=== PATIENT | female | born 1995 | race Caucasian/White ===

== ENCOUNTER → 2017-07-01 22:23 | Observation (INO) ==
--- NOTE | 2017-07-01 22:12 | OB/GYN Progress Note ---
Date of Encounter: 07/01/17 Time of Encounter: 22:10 - Assessment and Plan (1) 36 weeks gestation of Current Visit: Yes Status: Acute (2) Marisol rash of groin Current Visit: Yes Status: Acute Rx nystatin cream. (3) NST (non-stress test) reactive Current Visit: Yes Status: Acute Subjective - Subjective Interval history: 21 year-old presenting at 36 weeks gestation with c/o rash on vulva. She reports red sores that itch and burn. She also has increased discharge that is yellow. The discharge has been present for 2 weeks and the rash for 1 week. She was seen a week ago and had a negative vaginosis panel. Antepartum ROS: movement normal, no loss of fluid, no vaginal bleeding, no contractions Objective - Vital Signs Vital Signs: Intake and Output 07/01/17 07/01/17 07/01/17 07:59 15:59 23:59 Other: Weight 102.7 kg Patient Weight 07/01/17 23:59 Weight 102.7 kg - Exam FHR: category 1 FHR comments: NST reactive Abdomen: Present: soft, gravid Uterus: Absent: tenderness Cervical dilation: defer, pt not feeling any contractions, cramping, or tightening. Comments: dry, erythemic rash along vulva in circular pattern.
[2017-07-01 22:55] LABS: Trichomonas DNA Not Detected (Not Detect)
[2017-07-01 22:56] LABS: Candida DNA Not Detected (Not Detect); Gardnerella DNA Not Detected (Not Detect)
[2017-07-02 09:04] LABS: HSV 2 DNA Not Detected (Not Detect)
== END | disposition home or self-care (01) ==
LOC: 1NENULAB
PROVIDERS: ADMIT Obstetrics & Gynecology; ATTEND Obstetrics & Gynecology

== ENCOUNTER 2017-07-17 11:37 | Inpatient (IN) ==
[2017-07-17] MEDS ORDERED: Famotidine 20 MG/2 ML VIAL IVP PRN (11:50)
[2017-07-17] MEDS ORDERED: Naloxone 0.4 MG/ML INJ IVP PRN (11:50)
[2017-07-17] MEDS ORDERED: Ringers Solution, Lactated 1,000 ML IVC SCH (12:00)
[2017-07-17] MEDS ORDERED: miSOPROStol 25 MCG TABLET PO PRN (12:10)
[2017-07-17 12:42] LABS: Basophils % 0.2 %; Eosinophils % 0.3 %; Hematocrit 37.7 % (35.3-44.9); Hemoglobin 12.3 g/dL (11.5-15.4); Immature Granulocytes % 1.1 % (0-4); Lymphocytes # 2.3 K/mcL (0.6-4.6); Lymphocytes % 17.2 %; Mean Corpuscular HGB Conc 32.6 g/dL (31.6-35.5); Mean Corpuscular Hemoglobin 26.3 pg (28.0-33.3); Mean Corpuscular Volume 80.7 fL (83.0-100.0); Mean Platelet Volume 10.5 fL (9.4-12.4); Monocytes # 0.5 K/mcL (0.0-1.3); Monocytes % 3.9 %; Neutrophils # 10.3 K/mcL (1.6-8.9); Platelet Count 253 K/mcL (140-400); Red Blood Count 4.67 M/mcL (3.82-4.97); Segmented Neutrophils % 77.3 %
[2017-07-17 12:55] LABS: Alanine Aminotransferase 12 Units/L (0-55); Aspartate Amino Transferase 13 Units/L (5-34); BUN/Creatinine Ratio 12 (6-26); Blood Urea Nitrogen 8 mg/dL (7-20); Lactate Dehydrogenase 125 Units/L (159-327); Uric Acid 5.8 mg/dL (2.6-6.0); eGFR For African Americans > 60; eGFR For Non-African Americans > 60
--- NOTE | 2017-07-17 13:36 | OB/GYN History & Physical ---
Date of Encounter: 07/17/17 Time of Encounter: 13:31 Assessment and Plan (1) 38 weeks gestation of Current visit: Yes Status: Acute (2) Gestational hypertension affecting first Current visit: Yes Status: Acute Blood pressure remains elevated in labor and delivery, patient discussed with Dr. Marmolejo decision made to proceed with induction for gestational hypertension Admit to labor and delivery Cytotec ordered Nubain/epidural as desired Obtain PIH labs Anticipate History of Present Illness HPI: Ms. Constantino is a 21 year old female 38 weeks and 2 days. Sent from office for evaluation of elevated BP with occasional headache this past week. Blood pressures remain elevated. Decision made to move forward with IOL. Reports good movement, occasional cramping, denies vaginal bleeding or leaking of fluid. dictated by maternal obesity, monosomy X noted on NIPT, however follow -up scan showed normal-appearing fetus on the genetic counseling indicates risk of monosomy fetus is less than 5% Labs: O+, rubella and varicella immune, GBS negative, all other serologies negative Past Med Surg Social Fam HX - Past Medical History Medical history: no medical history Psychiatric history: no psych history - Past Surgical History Surgical History: no surgical history - Social History Smoking Status: Never smoker Smokeless Tobacco Status: No Alcohol use: none Drug use: none - Family History Paternal Grandfather Adopted: No Living Status: Still Living Hx Family Cardiac Disorders: Yes ("hole in his heart", stents and "watchman device") Hx Family Respiratory Disorders: No Hx Family Cancer: No Hx Family GI Disorders: No Hx Family Endocrine Disorder: No Hx Family Neuromuscular Disorders: No Hx Family Neurologic Disorders: No Hx Family HEENT Disorders: No Hx Family Autoimmune Disorders: No Hx Family Medical Disorders: Yes (stroke x3) Obstetrical History - Pregnancies : 1 Para: 0 Term: 0 : 0 Ab's: 0 Livin Medications and Allergies Vit#98/Ferrous Fum/FA [Kpn Tablet] 1 each PO DAILY 06/22/17 [ History] 3 Allergy/AdvReac Type Severity Reaction Status Date / Time No Known Allergies Allergy Verified 07/13/16 12:03 Exam - Constitutional Constitutional: well developed, well nourished, no acute distress - Neck Neck exam: full ROM - Lungs Respiratory exam: CTAB - Cardiovascular Cardiovascular exam: RRR - Abdomen Abdomen: Present: bowel sounds normal, gravid, non tender - Extremities Extremities exam: normal capillary refill, normal inspection - Vagina Vagina: Present: normal moisture - Cervix Dilation: 3 (Per in office ) Results Result Diagrams: 07/17/17 11:58 07/17/17 11:58 Abnormal lab results WBC 13.3 K/mcL (4.3-11.1) H 07/17/17 11:58 MCV 80.7 fL (83.0-100.0) L 07/17/17 11:58 MCH 26.3 pg (28.0-33.3) L 07/17/17 11:58 RDW 15.0 % (11.5-14.5) H 07/17/17 11:58 Neutrophils # 10.3 K/mcL (1.6-8.9) H 07/17/17 11:58 Lactate Dehydrogenase 125 Units/L (159-327) L 07/17/17 11:58 All other labs normal. - VTE Reasons for not Prescribing Prophylaxis: Treatment not Indicated - Low risk for VTE
[2017-07-17 15:12] LABS: Amphetamine Screen,Urine Negative ng/mL (Cutoff=1000); Barbiturate Screen,Urine Negative ng/mL (Cutoff=200); Benzodiazepines Screen,Urine Negative ng/mL (Cutoff=200); Cannabinoid Screen,Urine Negative ng/mL (Cutoff = 50); Cocaine Screen,Urine Negative ng/mL (Cutoff= 300); Creatinine,Urine 21 mg/dL; Opiate Screen,Urine Negative ng/mL (Cutoff=300); Phencyclidine Screen,Urine Negative ng/mL (Cutoff=25)
[2017-07-17 15:18] LABS: Protein/Creatinine Ratio,Urine < 0.33 mg/mg (0-0.20)
--- NOTE | 2017-07-17 16:29 | OB Labor Progress Note ---
Date of Encounter: 07/17/17 Time of Encounter: 16:27 Labor Progress Note - Cervix Cervix: 3-[address] Marmolejo - Heart Tones Heart Tones: 135/moderate/+accel/-decel - [place]: q1-3 - Interventions Interventions: AROM by - Plan Plan: Continue current management Will add pitocin if no further cervical change
[2017-07-17] MEDS ORDERED: *HR* Nalbuphine 20 MG/ML AMPUL IVP PRN (17:09)
[2017-07-17] MEDS ORDERED: Oxytocin 20 units/ LR 1000 mL 20 UNIT/1,000 ML BAG IVC SCH (17:45)
[2017-07-17] MEDS ORDERED: *HR* FentaNYL (PF) 100 MCG/2 ML VIAL ONE ×2 (21:15→23:34)
[2017-07-17] MEDS ORDERED: Bupivacaine-MPF 0.25% 10 ML VIAL ONE (21:15)
[2017-07-17] MEDS ORDERED: Epidural Premix (fent/bupiv) 110 ML EP ONE (21:16)
--- NOTE | 2017-07-17 21:53 | Anesthesia Evaluation PreOp ---
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 Other Medical History: Denies Any Significant HX Anesthesia History: Past Anesthesia (Never had NA or GA; denies family h/o GA complications) : Yes Test: Positive Alcohol Use: none Drug use: none Medications and Allergies Vit#98/Ferrous Fum/FA [Kpn Tablet] 1 each PO DAILY 06/22/17 [ History] 3 Allergy/AdvReac Type Severity Reaction Status Date / Time No Known Allergies Allergy Verified 07/13/16 12:03 - Meds/Allergy Pre-op Review Allergies Reviewed: Yes Beta Blockers on Current Med List: Yes Anesthesia Results - Labs 07/17/17 11:58 07/17/17 11:58 Anesthesia Exam 134/89, hr 99, rr 18 O2 Sat Height 1.63 m Weight 104.326 kg NPO (# of Hours): solids > 8hrs Pain Scale: 10 Pain Scale Used: Numeric (1 - 10) - HEENT Pupil (Motor): Pupils equal Mallampati: I Teeth: Normal Oral Opening: Greater than 3 - AIR CONDITIONING SHEET METAL INSTALLER LOC: Oriented AIR CONDITIONING SHEET METAL INSTALLER Motor: Normal RUE, Normal LUE, Normal RLE, Normal LLE, Normal Face AIR CONDITIONING SHEET METAL INSTALLER Sensory: Normal: RUE, LUE, RLE, LLE, Face - Cardiac Rhythm: Regular Murmur: None - Pulmonary Breath Sounds: bilateral Clear Respiratory Effort: Symmetrical Anesthesia Assess/Plan ASA Score: 2 Modified [place] Scale for Level of Consciousness: Cooperative, oriented, and tranquil Anesthetic Plan: Regional Autologous Blood: No Monitoring Plan: Standard Monitors Recovery Plan: Other
[2017-07-17] MEDS ORDERED: Bupivacaine-MPF 0.25% 10 ML VIAL EP ONE (21:55)
[2017-07-17] MEDS ORDERED: *HR* FentaNYL (PF) 100 MCG/2 ML VIAL EP ONE (21:55)
--- NOTE | 2017-07-17 21:55 | Anesthesia Procedures ---
Date of Encounter: 07/17/17 Time of Encounter: 21:54 Procedures: Anesthesia - Epidural/Spinal Patient ID/Chart reviewed: Yes Patient examined: Yes OB Eval: : 1 OB Eval: Hx Para: 0 OB Eval: Dilated at (cm): 5 OB Eval: Contractions: Non-stressed pattern Consent Obtained: Yes Supplemental Oxygen: None/Room Air Site Prep: Aseptic Technique, Sterile prep and drape, Povidone-Iodine 1% Patient position: upright Local Anesthetic: Lidocaine 1% Amount of Local Anesthetic used: 3 Touhy Needle Gauge: 18 Touhy Needle Depth (cm): 7 Catheter Depth at Skin (cm): 13 Test Dose (1.5% Lido + Epi): Volume given (mls): 5 Test Dose Result: Negative Loading Dose: 0.25% Marcaine (mls): 5 Loading Dose: Fentanyl (mcg): 100 Loading Dose Administered: Thru Catheter Infusion Med: 0.125% Bupivacaine w/ 2 mcg/ml Fentanyl Infusion Rate (mls/hr): 14 (w/ demand bolus of 5mL q30min PRN) Catheter Secured in Place: Tegaderm, Tape Interspace Used: L4-L5 Loss of Resistance (LORY): Yes Blood: No CSF: No Paresthesia: No Vitals + FHT's: please see Rachel HAMILTON's electronic documentation
[2017-07-17] MEDS ORDERED: Epidural Premix (fent/bupiv) 110 ML EP SCH (22:00)
[2017-07-17] MEDS ORDERED: Metoclopramide 10 MG/2 ML VIAL IVP PRN (23:31)
[2017-07-17] MEDS ORDERED: Lidocaine -MPF 2% 5 ML VIAL ONE (23:34)
[2017-07-17] MEDS ORDERED: *HR* Oxytocin 10 UNIT/ML VIAL IM ONE (23:36)
[2017-07-18] MEDS ORDERED: MetroNIDAZOLE 500 MG/100 ML 500 MG/100 ML BAG IVPB ONE (00:14)
[2017-07-18] MEDS ORDERED: *HR* Morphine Sulfate/PF 5 MG/10 ML AMPUL ONE (00:29)
[2017-07-18] MEDS ORDERED: Ringers Solution, Lactated 1,000 ML ONE (00:33)
[2017-07-18] MEDS ORDERED: *HR* FentaNYL (PF) 100 MCG/2 ML VIAL ONE (00:46)
[2017-07-18] MEDS ORDERED: Ketamine *HR* 500 MG/10 ML MDV ONE (00:53)
[2017-07-18] MEDS ORDERED: Ondansetron 4 MG/2 ML VIAL IVP PRN ×2 (01:00→03:30)
[2017-07-18] MEDS ORDERED: Naloxone 0.4 MG/ML INJ IVP PRN ×2 (01:00→03:30)
[2017-07-18] MEDS ORDERED: *HR* HYDROmorphone (PF) 1 MG/ML SYRINGE IVP PRN ×2 (01:00→03:30)
--- NOTE | 2017-07-18 01:55 | Anesthesia Evaluation Post Op ---
Date of Encounter: 07/18/17 Time of Encounter: 01:54 - Vital Signs Vital Signs: 134/82, HR 85, RR 18, 98% - Lungs Lungs: Clear Ascult./Percussion - Airway Airway: Non-obstructed - Cardiovascular Regular Rate - Mental Status Mental Status: Alert & Oriented, Answers Appropriately - Pain Pain Scale: 0 Pain Scale used: Numeric (1 - 10) - Nausea Vomiting Nausea Vomiting: Not Present - Hydration Hydration: NPO, Gusman catheter - Discharge PostOp Status: Transfer Patient to floor
[2017-07-18] MEDS ORDERED: Rho Immune Globulin 1,500 UNIT SYRINGE IM ONE (03:30)
[2017-07-18] MEDS ORDERED: Sennosides 8.6 MG TABLET PO PRN (03:30)
[2017-07-18] MEDS ORDERED: Oxytocin 20 units/ LR 1000 mL 20 UNIT/1,000 ML BAG IVC SCH (03:30)
[2017-07-18] MEDS ORDERED: Simethicone 80 MG TAB.CHEW PO PRN (03:30)
[2017-07-18] MEDS ORDERED: Metoclopramide 10 MG/2 ML VIAL IVP PRN (03:30)
--- NOTE | 2017-07-18 04:09 | OB/GYN Procedure Note ---
Section - Date of procedure: 07/18/17 Preop diagnosis: arrest of dilation, category 2 FHT tracing Post-op diagnosis: same (Occult cord, cord around neck x1) Procedure: section, primary low transverse Surgeon: Raysa Marmolejo Estimated blood loss (cc): 500 Anesthesiologist: Anel Cole Supervisor Front: Calvin Khan Anesthesia Type: Epidural section complications: none Disposition: L&D Recovery Room Specimens: Placenta, Cord segment, Cord blood - Infant (s) A Infant Delivery Date: 07/18/17 Delivery Time: 00:36 Presentation: vertex Position: NESTOR Route of delivery: other ( section) Gender: Female Viability: Viable Pounds: 7 Ounces: 4 Gram Weight: 3.3 kg at 1 minute: 9 at 5 minutes: 9 Shoulder Dystocia: not encountered Specimens collected: cord blood Placenta: spontaneous, uterine exploration Cord: nuchal cord, 3 umbilical vessels, other (Occult cord) - Narrative Narrative: The patient was brought to the operating room, sign in completed. Epidural anesthesia was dosed to be adequate for surgery. The patient was then prepped and draped in the usual sterile fashion. A timeout was completed. A Pfannenstiel skin incision was then made and sharply dissected down to the fascia. The fascia was then incised in the midline and extended bluntly and sharply bilaterally. 2 straight [place] clamps were placed on the inferior fascial edge and the fascia was bluntly and sharply dissected away from rectus muscles, this was repeated superiorly.The rectus muscles were bluntly and sharply bissected. Peritoneum was bluntly entered and extended superiorly and inferiorly. A bladder blade was placed to protect the bladder. The Vesicouterine peritoneum was incised with Metzenbaum scissors and extended laterally then the bladder flap was reflected inferiorly and the bladder blade was replaced to protect the bladder. A low transverse incision was then made in the lower uterine segment down to the amnion. This was then bluntly extended laterally then upward in a U fashion with bandage scissors bilaterally. The amnion was then bluntly entered with Allis clamp, clear fluid was seen, and the was delivered in vertex presentation. There was an occult cord along with a nuchal x1 which was reduced. The was vigorous and suctioned on the operating field. After delayed cord clamping, the was handed to the nursery care team. Cord blood was obtained and a cord segment was obtained. IV Pitocin was started. The placenta was delivered spontaneous and intact. The uterine Cavity was digitally inspected and noted to be clear and then was wiped clean with a moist lap sponge. Tubes and ovaries were inspected and found to be grossly normal. Ring clamps were placed on the edge of the uterine incision and the uterine incision was closed using 0 Vicryl suture in a running locking fashion. A second imbricating layer completed the uterine closure. Good hemostasis was achieved. The pelvic cavity was copiously irrigated with sterile water and good hemostasis was again noted. Peritoneal edges and rectus muscles were inspected and good hemostasis was achieved. The fascia was then closed using an 0 PDS loop in a running nonlocking fashion. Subcutaneous tissue was irrigated with sterile water good hemostasis was achieved. Subcutaneous layer was closed with 3-0 Monocryl in a running nonlocking fashion. The skin was then closed with 4-0 Monocryl in a subcuticular fashion. Benzoin and Steri-Strips were used to reinforce the skin incision. Gusman was noted to be draining clear yellow urine at the end of the procedure. All sponge and instrument counts were correct at the end of the procedure. The patient was taken to the recovery room in stable condition.
[2017-07-18] MEDS: *HR* OxyCODONE/APAP 5/325 TABLET PO PRN ×5 (04:32→22:56)
[2017-07-18] MEDS: Ibuprofen 600 MG TABLET PO SCH ×3 (05:40→18:42)
[2017-07-18 08:18] LABS: Basophils % 0.1 %; Eosinophils % 0.1 %; Hematocrit 30.3 % (35.3-44.9); Immature Granulocytes % 0.5 % (0-4); Lymphocytes # 2.2 K/mcL (0.6-4.6); Lymphocytes % 14.8 %; Mean Corpuscular Hemoglobin 27.2 pg (28.0-33.3); Mean Corpuscular Volume 82.6 fL (83.0-100.0); Mean Platelet Volume 10.5 fL (9.4-12.4); Monocytes # 0.9 K/mcL (0.0-1.3); Monocytes % 6.4 %; Neutrophils # 11.5 K/mcL (1.6-8.9); Platelet Count 189 K/mcL (140-400); Red Blood Count 3.67 M/mcL (3.82-4.97); Red Cell Distribution Width 15.2 % (11.5-14.5); Segmented Neutrophils % 78.1 %
[2017-07-18] MEDS ORDERED: Fluconazole 100 MG TABLET PO ONE (21:19)
[2017-07-19] MEDS: Ibuprofen 600 MG TABLET PO SCH ×4 (02:08→21:23)
[2017-07-19] MEDS: *HR* OxyCODONE/APAP 5/325 TABLET PO PRN ×5 (03:04→21:06)
[2017-07-19 07:29] LABS: Eosinophils % 0.7 %; Hematocrit 30.6 % (35.3-44.9); Hemoglobin 9.7 g/dL (11.5-15.4); Immature Granulocytes % 0.8 % (0-4); Lymphocytes % 18.4 %; Mean Corpuscular HGB Conc 31.7 g/dL (31.6-35.5); Mean Corpuscular Hemoglobin 26.5 pg (28.0-33.3); Mean Corpuscular Volume 83.6 fL (83.0-100.0); Monocytes % 6.2 %; Platelet Count 168 K/mcL (140-400); Red Blood Count 3.66 M/mcL (3.82-4.97); Red Cell Distribution Width 15.4 % (11.5-14.5); Segmented Neutrophils % 73.8 %
[2017-07-19 07:30] LABS: Basophils % 0.1 %; Eosinophils # 0.1 K/mcL (0.0-0.6); Lymphocytes # 1.8 K/mcL (0.6-4.6); Monocytes # 0.6 K/mcL (0.0-1.3); Neutrophils # 7.1 K/mcL (1.6-8.9)
[2017-07-19 07:41] LABS: Alanine Aminotransferase 11 Units/L (0-55); Aspartate Amino Transferase 15 Units/L (5-34); BUN/Creatinine Ratio 10 (6-26); Blood Urea Nitrogen 6 mg/dL (7-20); Lactate Dehydrogenase 165 Units/L (159-327); Uric Acid 6.2 mg/dL (2.6-6.0); eGFR For African Americans > 60; eGFR For Non-African Americans > 60
[2017-07-19] MEDS: Prenatal Vit/FA 1 EACH TABLET PO SCH (08:18)
--- NOTE | 2017-07-19 08:32 | OB/GYN Progress Note ---
Date of Encounter: 07/19/17 Time of Encounter: 08:30 - Assessment and Plan (1) delivery, delivered, current hospitalization Current Visit: Yes Status: Acute Doing well, meeting milestones (2) Anemia, Current Visit: Yes Status: Acute Iron supplementation, blood count stable Subjective - Subjective Principal diagnosis: PPD1/POD1 Interval history: The patient was tolerating a regular diet, ambulating, voiding and has return of bowel function. She is working on feeding and is having some issues with breast-feeding. She wants to have an IUD for control. She would like to be put on control pills until this is possible. She declines Depo-Provera Patient reports: appetite normal, voiding normally, pain well controlled, ambulating normally Clemons: doing well, bottle feeding Objective - Vital Signs Latest vital signs: Vital Signs Temp Pulse Resp BP Pulse Ox 07/18/17 21:43 103 07/18/17 19:54 98.6 F 16 129/83 97 07/18/17 15:45 97.9 F 108 16 114/79 98 07/18/17 12:33 99.0 F 103 16 123/79 97 Intake and Output 07/18/17 07/19/17 07/19/17 23:59 07:59 15:59 Intake Total 300 / 300 800 / 800 Output Total 2150 / 2150 500 / 500 Balance -1850 / -1850 300 / 300 Intake: Oral 300 / 300 800 / 800 Output: Urine 2150 / 2150 Catheter 500 / 500 Other: Weight 99.6 kg Patient Weight 07/19/17 23:59 Weight 99.6 kg - Exam Lungs: bilateral: normal Extremities: Present: normal. Absent: tenderness, edema Abdomen: Present: normal appearance, soft, other (+BS). Absent: distention, tenderness Incision: Present: dry, dressed - Labs Labs: Laboratory Results - last 24 hr 07/18/17 07/19/17 07/19/17 07:45 07:08 07:08 WBC 14.7 H 9.7 RBC 3.67 L 3.66 L Hgb 10.0 L D 9.7 L Hct 30.3 L 30.6 L MCV 82.6 L 83.6 MCH 27.2 L 26.5 L MCHC 33.0 31.7 RDW 15.2 H 15.4 H Plt Count 189 168 MPV 10.5 10.0 Immature Gran % 0.5 0.8 Seg Neutrophils % 78.1 73.8 Lymphocytes % 14.8 18.4 Monocytes % 6.4 6.2 Eosinophils % 0.1 0.7 Basophils % 0.1 0.1 Neutrophils # 11.5 H 7.1 Lymphocytes # 2.2 1.8 Monocytes # 0.9 0.6 Eosinophils # 0.0 0.1 Basophils # 0.0 0.0 BUN 6 L Creatinine 0.62 Est GFR ( Amer) > 60 Est GFR (Non-Af Amer) > 60 BUN/Creatinine Ratio 10 Uric Acid 6.2 H AST 15 ALT 11 Lactate Dehydrogenase 165 - Allied health notes Allied health notes reviewed: nursing
[2017-07-20] MEDS: *HR* OxyCODONE/APAP 5/325 TABLET PO PRN ×4 (01:05→12:06)
[2017-07-20] MEDS: Ibuprofen 600 MG TABLET PO SCH (04:39)
[2017-07-20 08:02] VITALS: BP 111/73
--- NOTE | 2017-07-20 08:14 | Discharge Summary ---
Date of Encounter: 07/20/17 Time of Encounter: 08:10 - Discharge Diagnosis (1) Anemia, Priority: Secondary Status: Acute Comments: VSS. Asymptomatic Will d/c home with ferrous sulfate daily. (2) delivery, delivered, current hospitalization Priority: Primary Status: Acute Comments: Status post day 2. VSS, asymptomatic, denies headache, vision changes, and epigastric pain. Bottle feeding without difficulty. Incision well approximated with steri strips in place. No drainage or erythema. Pain well controlled with prescribed medication. Tolerating regular diet. Voiding and passing flatus without difficulty. Follow up appointment in 2 weeks for incision check. D/C home today. Start Micronor for OCP. Take at the same time everyday. Will discuss contraception management again at 6 week visit. - Discharge Medications Prescriptions: Ibuprofen [Motrin] 600 mg PO Q6HR #30 tab OxyCODONE/APAP 5/325 [Percocet 5/325 MG] 1 each PO Q6HR PRN #28 tab PRN Reason: Moderate pain 4-6 Docusate [Colace] 100 mg PO BID PRN #20 PRN Reason: Constipation Ferrous Sulfate 325 mg PO DAILY #30 tab Home Medications: Vit#98/Ferrous Fum/FA [Kpn Tablet] 1 each PO DAILY 06/22/17 [ History] Docusate [Colace] 100 mg PO BID PRN #20 07/20/17 [Rx] Ferrous Sulfate 325 mg PO DAILY #30 tab 07/20/17 [Rx] Ibuprofen [Motrin] 600 mg PO Q6HR #30 tab 07/20/17 [Rx] OxyCODONE/APAP 5/325 [Percocet 5/325 MG] 1 each PO Q6HR PRN #28 tab 07/20/17 [Rx ] Simethicone [Gas-X] 80 mg PO TID PRN 07/20/17 [Rx] Allergies/Adverse Reactions: 3 Allergy/AdvReac Type Severity Reaction Status Date / Time No Known Allergies Allergy Verified 07/13/16 12:03 Data Procedures and tests throughout hospitalization: Laboratory Tests 07/17/17 07/17/17 07/17/17 11:58 11:58 14:52 WBC 13.3 H RBC 4.67 Hgb 12.3 Hct 37.7 MCV 80.7 L MCH 26.3 L MCHC 32.6 RDW 15.0 H Plt Count 253 MPV 10.5 Immature Gran % 1.1 Seg Neutrophils % 77.3 Lymphocytes % 17.2 Monocytes % 3.9 Eosinophils % 0.3 Basophils % 0.2 Neutrophils # 10.3 H Lymphocytes # 2.3 Monocytes # 0.5 Eosinophils # 0.0 Basophils # 0.0 Immature Plt Fraction 4.0 BUN 8 Creatinine 0.66 Est GFR ( Amer) > 60 Est GFR (Non-Af Amer) > 60 BUN/Creatinine Ratio 12 Uric Acid 5.8 AST 13 ALT 12 Lactate Dehydrogenase 125 L Urine Creatinine 21 Protein/Creatinin Ratio < 0.33 H Urine Total Protein < 7 Urine Opiates Screen Negative Ur Barbiturates Screen Negative Ur Phencyclidine Scrn Negative Ur Amphetamines Screen Negative U Benzodiazepines Scrn Negative Urine Cocaine Screen Negative U Marijuana (THC) Screen Negative 07/18/17 07/19/17 07/19/17 07:45 07:08 07:08 WBC 14.7 H 9.7 RBC 3.67 L 3.66 L Hgb 10.0 L D 9.7 L Hct 30.3 L 30.6 L MCV 82.6 L 83.6 MCH 27.2 L 26.5 L MCHC 33.0 31.7 RDW 15.2 H 15.4 H Plt Count 189 168 MPV 10.5 10.0 Immature Gran % 0.5 0.8 Seg Neutrophils % 78.1 73.8 Lymphocytes % 14.8 18.4 Monocytes % 6.4 6.2 Eosinophils % 0.1 0.7 Basophils % 0.1 0.1 Neutrophils # 11.5 H 7.1 Lymphocytes # 2.2 1.8 Monocytes # 0.9 0.6 Eosinophils # 0.0 0.1 Basophils # 0.0 0.0 Immature Plt Fraction BUN 6 L Creatinine 0.62 Est GFR ( Amer) > 60 Est GFR (Non-Af Amer) > 60 BUN/Creatinine Ratio 10 Uric Acid 6.2 H AST 15 ALT 11 Lactate Dehydrogenase 165 Urine Creatinine Protein/Creatinin Ratio Urine Total Protein Urine Opiates Screen Ur Barbiturates Screen Ur Phencyclidine Scrn Ur Amphetamines Screen U Benzodiazepines Scrn Urine Cocaine Screen U Marijuana (THC) Screen Date of admission: 07/17/17 11:37 Primary care physician: PCP NONE Discharging clinician: Susan Stanford Anticipated date of discharge: 07/20/17 - Patient Status Disposition: Home, Self-Care Condition: Good Functional capacity at discharge: independent ambulation Overall status at discharge: patient is progressing back to baseline - Discharge Instructions Instructions: Anemia (GEN) Follow Up With: NONE,PCP [Primary Care Provider] - Raysa Marmolejo MD [Partnered Physician] - (Follow up at 2 weeks and 6 weeks ) - Diet and Activity Activity: increase activity as tolerated Diet: regular diet Hospital Course Reason for admission: induction of labor, IUP at term Delivery: section Episiotomy: none Laceration: none Other procedures: none complications: none Discharge diagnosis: IUP at term delivered baby: female Time Attestation: Total time spent providing and/or coordinating discharge services: Time Spent: Less than 30 minutes - VTE Reasons for not Prescribing Prophylaxis: Treatment not Indicated - Low risk for VTE Documentation of Mechanical Device: Intermittent pneumatic compression device Exam - Constitutional Vitals: Temp Pulse Resp BP Pulse Ox 98.0 F 80 16 111/73 100 07/20/17 07:30 07/20/17 07:30 07/20/17 07:30 07/20/17 07:30 07/19/17 20:25 General appearance IM: A&O X 3 - Respiratory Respiratory exam: Present: CTAB - Cardiovascular Cardiovascular exam IM: Present: +S1, +S2 - GI/Abdominal GI/Abdominal exam IM: normal bowel sounds Incision: normal, dry, intact - Rectal Rectal exam: deferred - Uterine Tone: Firm Uterus Position: 2 Fingers Below Umbilicus, Midline - Extremities Exam Extremities exam IM: Present: normal capillary refill, warm - Neurological Exam Neurological exam: oriented X3
[2017-07-20] MEDS: Prenatal Vit/FA 1 EACH TABLET PO SCH (08:48)
== END 2017-07-20 12:47 | disposition home or self-care (01) | DRG 766 ==
LOC: 1NENULAB 11:37 → 1NENUOBS 07-18 03:29
PROVIDERS: ADMIT Obstetrics & Gynecology; ATTEND Obstetrics & Gynecology

== ENCOUNTER 2020-06-28 05:48 | Inpatient (IN) ==
[2020-06-28] MEDS ORDERED: Naloxone 0.4 MG/ML INJ IVP PRN (05:58)
[2020-06-28] MEDS ORDERED: Metoclopramide 10 MG/2 ML VIAL IVP PRN ×2 (05:58→12:24)
[2020-06-28] MEDS ORDERED: Famotidine 20 MG/2 ML VIAL IVP PRN (05:58)
[2020-06-28] MEDS ORDERED: Azithromycin 500 MG in 0.9 % Sodium Chloride 250 ML IVPB ONE (05:58)
[2020-06-28] MEDS ORDERED: ceFAZolin 2,000 MG in Water for inj. (sterile) 20 ML IVP ONE (05:59)
[2020-06-28] MEDS ORDERED: Ringers Solution, Lactated 1,000 ML IVC SCH (06:00)
[2020-06-28 06:36] LABS: Basophils % 0.4 %; Eosinophils # 0.1 K/mcL (0.0-0.6); Eosinophils % 0.8 %; Hematocrit 32.8 % (35.3-44.9); Hemoglobin 10.8 g/dL (11.5-15.4); Immature Granulocytes % 0.9 % (0-4); Lymphocytes # 2.7 K/mcL (0.6-4.6); Lymphocytes % 24.6 %; Mean Corpuscular HGB Conc 32.9 g/dL (31.6-35.5); Mean Corpuscular Hemoglobin 26.7 pg (28.0-33.3); Mean Platelet Volume 10.1 fL (9.4-12.4); Monocytes # 0.8 K/mcL (0.0-1.3); Monocytes % 7.5 %; Neutrophils # 7.2 K/mcL (1.6-8.9); Platelet Count 231 K/mcL (140-400); Red Blood Count 4.05 M/mcL (3.82-4.97); Red Cell Distribution Width 16.9 % (11.5-14.5); Segmented Neutrophils % 65.8 %; White Blood Count 10.9 K/mcL (4.3-11.1)
[2020-06-28 06:53] LABS: Glucose 92 mg/dL (70-105)
[2020-06-28] MEDS ORDERED: EPHEDrine 50 MG/ML VIAL ONE (07:43)
[2020-06-28] MEDS ORDERED: Ringers Solution, Lactated 1,000 ML ONE (07:44)
[2020-06-28] MEDS ORDERED: Ketorolac 30 MG/ML VIAL ONE (07:45)
[2020-06-28] MEDS ORDERED: Ondansetron 4 MG/2 ML VIAL ONE (07:45)
[2020-06-28] MEDS ORDERED: Dexamethasone 4 MG/ML VIAL ONE (07:45)
[2020-06-28] MEDS ORDERED: *HR* Morphine Sulfate/PF 10 MG/10 ML AMPUL ONE (07:46)
[2020-06-28] MEDS ORDERED: *HR* FentaNYL (PF) 100 MCG/2 ML VIAL ONE (07:46)
[2020-06-28 08:38] LABS: Alanine Aminotransferase 10 Units/L (7-52); Aspartate Amino Transferase 13 Units/L (13-39); BUN/Creatinine Ratio 19 (6-26); Blood Urea Nitrogen 10 mg/dL (6-20); Lactate Dehydrogenase 123 Units/L (140-271); Uric Acid 6.4 mg/dL (2.3-7.6); eGFR For African Americans > 60 (> 60); eGFR For Non-African Americans > 60 (> 60)
[2020-06-28] MEDS ORDERED: Acetaminophen IV 1,000 MG/100 ML INFUS..BTL ONE (08:41)
[2020-06-28 08:54] LABS: Protein/Creatinine Ratio,Urine 0.28 mg/mg (0.00-0.20)
[2020-06-28 09:04] LABS: Amphetamine Screen,Urine Negative ng/mL (Cutoff=1000); Barbiturate Screen,Urine Negative ng/mL (Cutoff=200); Benzodiazepines Screen,Urine Negative ng/mL (Cutoff=200); Cannabinoid Screen,Urine Negative ng/mL (Cutoff = 50); Cocaine Screen,Urine Negative ng/mL (Cutoff= 300); Opiate Screen,Urine Negative ng/mL (Cutoff=300); Phencyclidine Screen,Urine Negative ng/mL (Cutoff=25)
[2020-06-28] MEDS ORDERED: Oxytocin 20 units/ LR 1000 mL 20 UNIT/1,000 ML BAG IVC ONE (09:57)
[2020-06-28] MEDS ORDERED: *HR* Promethazine 25 MG/ML VIAL IVP STA (10:20)
[2020-06-28] MEDS ORDERED: Ondansetron 4 MG/2 ML VIAL IVP PRN (12:24)
[2020-06-28] MEDS ORDERED: Sennosides 8.6 MG TABLET PO PRN (12:24)
[2020-06-28] MEDS ORDERED: Oxytocin 20 units/ LR 1000 mL 20 UNIT/1,000 ML BAG IVC SCH (12:24)
[2020-06-28] MEDS ORDERED: Simethicone 80 MG TAB.CHEW PO PRN (12:24)
[2020-06-28] MEDS ORDERED: Rho Immune Globulin 1,500 UNIT SYRINGE IM ONE (12:24)
[2020-06-28] MEDS: *HR* Metformin 500 MG TABLET PO SCH (16:30)
[2020-06-28] MEDS: Acetaminophen 325 MG TABLET PO SCH (17:31)
[2020-06-28] MEDS: Ibuprofen 600 MG TABLET PO SCH (17:32)
[2020-06-29] MEDS: Ibuprofen 600 MG TABLET PO SCH ×4 (02:27→18:21)
[2020-06-29] MEDS: *HR* OxyCODONE Immed Rel 5 MG TABLET PO PRN ×5 (04:34→21:17)
[2020-06-29] MEDS: Prenatal Vit/FA 1 EACH TABLET PO SCH (07:50)
[2020-06-29] MEDS: *HR* Metformin 500 MG TABLET PO SCH ×2 (07:50→16:47)
[2020-06-29] MEDS: Acetaminophen 325 MG TABLET PO SCH ×3 (07:51→18:21)
[2020-06-29 08:12] LABS: Basophils % 0.3 %; Eosinophils # 0.1 K/mcL (0.0-0.6); Eosinophils % 0.6 %; Hematocrit 27.4 % (35.3-44.9); Immature Granulocytes % 0.8 % (0-4); Lymphocytes # 1.9 K/mcL (0.6-4.6); Lymphocytes % 18.9 %; Mean Corpuscular Hemoglobin 25.4 pg (28.0-33.3); Mean Platelet Volume 10.1 fL (9.4-12.4); Monocytes # 0.7 K/mcL (0.0-1.3); Monocytes % 6.8 %; Neutrophils # 7.4 K/mcL (1.6-8.9); Platelet Count 170 K/mcL (140-400); Red Blood Count 3.34 M/mcL (3.82-4.97); Red Cell Distribution Width 17.2 % (11.5-14.5); Segmented Neutrophils % 72.6 %; White Blood Count 10.2 K/mcL (4.3-11.1)
[2020-06-29 08:16] LABS: Hemoglobin 8.5 g/dL (11.5-15.4)
[2020-06-30] MEDS: Ibuprofen 600 MG TABLET PO SCH ×3 (00:16→11:54)
[2020-06-30] MEDS: Acetaminophen 325 MG TABLET PO SCH ×3 (00:17→11:54)
[2020-06-30] MEDS: *HR* OxyCODONE Immed Rel 5 MG TABLET PO PRN ×3 (01:52→09:15)
[2020-06-30 07:57] VITALS: BP 124/84
[2020-06-30] MEDS: Prenatal Vit/FA 1 EACH TABLET PO SCH (09:14)
[2020-06-30] MEDS: *HR* Metformin 500 MG TABLET PO SCH (09:15)
== END 2020-06-30 13:24 | disposition home or self-care (01) | DRG 788 ==
LOC: 1NENULAB 05:48 → 1NENUOBS 12:24
PROVIDERS: ADMIT Obstetrics & Gynecology; ATTEND Obstetrics & Gynecology

== ENCOUNTER → 2021-08-21 13:25 | Observation (INO) ==
[2021-08-21 13:03] LABS: Hematocrit 33.7 % (35.3-44.9); Hemoglobin 10.9 g/dL (11.5-15.4); Mean Corpuscular HGB Conc 32.3 g/dL (31.6-35.5); Mean Corpuscular Hemoglobin 26.8 pg (28.0-33.3); Mean Platelet Volume 9.4 fL (9.4-12.4); Platelet Count 232 K/mcL (140-400); Red Blood Count 4.06 M/mcL (3.82-4.97); White Blood Count 11.3 K/mcL (4.3-11.1)
== END | disposition home or self-care (01) ==
LOC: 1NENULAB
PROVIDERS: ADMIT Obstetrics & Gynecology; ATTEND Obstetrics & Gynecology

== ENCOUNTER → 2021-11-06 01:37 | Observation (INO) | END | disposition home or self-care (01) | LOC: 1NENULAB | PROVIDERS: ADMIT Registered Nurse; ATTEND Registered Nurse ==

== ENCOUNTER → 2021-11-17 19:02 | Observation (INO) ==
[2021-11-17 19:30] LABS: Amorphous Sediment,Urine Few per hpf (None-Few); Bacteria,Urine Few per hpf (None-Few); Bilirubin,Urine Negative (Negative); Blood,Urine Large (Negative); Clarity,Urine Ex.Turbid (Clear); Color,Urine Yellow (Yellow); Glucose,Urine (UA) Normal (Normal); Ketones,Urine Negative (Negative); Leukocyte Esterase,Urine Moderate (Negative); Nitrite,Urine Negative (Negative); Protein,Urine 30 mg/dL (Neg-Trace); RBC,Urine TNTC per hpf (0-3); Squamous Epithelial Cell,Urine Moderate per hpf (None-Few); Urobilinogen,Urine Normal (Normal); WBC,Urine TNTC per hpf (0-3)
== END | disposition home or self-care (01) ==
LOC: 1NENULAB
PROVIDERS: ADMIT Advanced Practice Midwife; ATTEND Advanced Practice Midwife

== ENCOUNTER 2022-01-10 11:51 | Inpatient (IN) ==
[2022-01-10] MEDS ORDERED: CeFAZolin 2,000 MG/120 ML BAG IVPB ONE (12:22)
[2022-01-10] MEDS ORDERED: Metoclopramide 10 MG/2 ML VIAL IVP ONE (12:22)
[2022-01-10] MEDS ORDERED: Famotidine 20 MG/2 ML VIAL IVP ONE (12:22)
[2022-01-10] MEDS ORDERED: Ringers Solution, Lactated 1,000 ML IVC SCH ×2 (12:30→16:00)
[2022-01-10] MEDS ORDERED: Oxytocin 20 units/ LR 1000 mL 20 UNIT/1,000 ML BAG IVC SCH ×2 (12:30→16:00)
[2022-01-10 12:49] LABS: Basophils # 0.1 K/mcL (0.0-0.2); Basophils % 0.4 %; Eosinophils # 0.1 K/mcL (0.0-0.6); Hematocrit 37.7 % (35.3-44.9); Hemoglobin 12.2 g/dL (11.5-15.4); Immature Granulocytes % 2.7 % (0-4); Lymphocytes # 2.6 K/mcL (0.6-4.6); Mean Corpuscular HGB Conc 32.4 g/dL (31.6-35.5); Mean Corpuscular Hemoglobin 26.9 pg (28.0-33.3); Mean Platelet Volume 9.4 fL (9.4-12.4); Monocytes # 0.7 K/mcL (0.0-1.3); Monocytes % 5.9 %; Neutrophils # 8.1 K/mcL (1.6-8.9); Platelet Count 225 K/mcL (140-400); Red Blood Count 4.54 M/mcL (3.82-4.97); White Blood Count 11.9 K/mcL (4.3-11.1)
[2022-01-10 12:58] LABS: Amphetamine Screen,Urine Negative ng/mL (Cutoff=1000); Barbiturate Screen,Urine Negative ng/mL (Cutoff=200); Benzodiazepines Screen,Urine Negative ng/mL (Cutoff=200); Cannabinoid Screen,Urine Negative ng/mL (Cutoff = 50); Cocaine Screen,Urine Negative ng/mL (Cutoff= 300); Creatinine,Urine 38 mg/dL; Opiate Screen,Urine Negative ng/mL (Cutoff=300); Phencyclidine Screen,Urine Negative ng/mL (Cutoff=25); Protein/Creatinine Ratio,Urine 0.24 mg/mg (0.00-0.20)
[2022-01-10 13:08] LABS: Alanine Aminotransferase 7 Units/L (7-52); Aspartate Amino Transferase 9 Units/L (13-39); BUN/Creatinine Ratio 12 (6-26); Blood Urea Nitrogen 5 mg/dL (6-20); Lactate Dehydrogenase 94 Units/L (140-271); Uric Acid 4.8 mg/dL (2.3-7.6); eGFR For African Americans > 60 (> 60); eGFR For Non-African Americans > 60 (> 60)
[2022-01-10] MEDS ORDERED: Acetaminophen IV 1,000 MG/100 ML BAG IVPB PRN (14:01)
[2022-01-10] MEDS ORDERED: *HR* OxyCODONE Immed Rel 5 MG TABLET PO PRN (14:01)
[2022-01-10] MEDS ORDERED: Promethazine 6.25 MG in Water for inj. (sterile) 20 ML IVPB PRN (14:01)
[2022-01-10] MEDS ORDERED: *HR* Morphine Sulfate/PF 10 MG/10 ML AMPUL ONE (15:32)
[2022-01-10] MEDS ORDERED: *HR* FentaNYL (PF) 100 MCG/2 ML VIAL ONE (15:32)
[2022-01-10] MEDS ORDERED: Ketorolac 30 MG/ML VIAL ONE (15:37)
[2022-01-10] MEDS ORDERED: Ondansetron 4 MG/2 ML VIAL ONE (15:37)
[2022-01-10] MEDS ORDERED: Rho Immune Globulin 1,500 UNIT SYRINGE IM ONE (15:56)
[2022-01-10] MEDS ORDERED: Metoclopramide 10 MG/2 ML VIAL IVP PRN (15:56)
[2022-01-10] MEDS ORDERED: Ondansetron 4 MG/2 ML VIAL IVP PRN (15:56)
[2022-01-10] MEDS ORDERED: EPHEDrine 50 MG/ML VIAL ONE (16:13)
[2022-01-10] MEDS ORDERED: *HR* Nalbuphine 10 MG/ML AMPUL IV PRN ×2 (18:21→18:39)
[2022-01-10] MEDS ORDERED: Ondansetron 4 MG/2 ML VIAL IVP ONE (18:21)
[2022-01-10] MEDS: Ibuprofen 600 MG TABLET PO SCH (21:00)
[2022-01-10] MEDS: Acetaminophen 325 MG TABLET PO SCH (21:00)
[2022-01-10] MEDS ORDERED: *HR* Enoxaparin 60 MG/0.6 ML SYRINGE SQ SCH (21:00)
[2022-01-11] MEDS: Ibuprofen 600 MG TABLET PO SCH ×4 (03:06→21:29)
[2022-01-11] MEDS: Acetaminophen 325 MG TABLET PO SCH ×4 (03:06→21:29)
[2022-01-11 04:17] LABS: Basophils % 0.3 %; Eosinophils # 0.1 K/mcL (0.0-0.6); Eosinophils % 0.5 %; Hematocrit 31.7 % (35.3-44.9); Mean Corpuscular HGB Conc 33.4 g/dL (31.6-35.5); Mean Corpuscular Hemoglobin 27.6 pg (28.0-33.3); Mean Corpuscular Volume 82.6 fL (83.0-100.0); Mean Platelet Volume 9.4 fL (9.4-12.4); Monocytes # 0.8 K/mcL (0.0-1.3); Neutrophils # 9.7 K/mcL (1.6-8.9); Platelet Count 202 K/mcL (140-400); Red Blood Count 3.84 M/mcL (3.82-4.97); Red Cell Distribution Width 16.8 % (11.5-14.5); Segmented Neutrophils % 76.2 %; White Blood Count 12.7 K/mcL (4.3-11.1)
[2022-01-11 04:19] LABS: Hemoglobin 10.6 g/dL (11.5-15.4)
[2022-01-11] MEDS: *HR* Enoxaparin 60 MG/0.6 ML SYRINGE SQ SCH ×2 (06:36→18:01)
[2022-01-11] MEDS: Prenatal Vit/FA 1 EACH TABLET PO SCH (09:09)
[2022-01-11] MEDS: *HR* OxyCODONE Immed Rel 5 MG TABLET PO PRN ×3 (11:49→19:51)
[2022-01-11] MEDS: Simethicone 80 MG TAB.CHEW PO PRN (19:56)
[2022-01-12] MEDS: *HR* OxyCODONE Immed Rel 5 MG TABLET PO PRN ×2 (04:07→09:13)
[2022-01-12] MEDS: Acetaminophen 325 MG TABLET PO SCH (04:07)
[2022-01-12] MEDS: Ibuprofen 600 MG TABLET PO SCH (04:07)
[2022-01-12] MEDS: *HR* Enoxaparin 60 MG/0.6 ML SYRINGE SQ SCH (06:10)
[2022-01-12 08:00] VITALS: BP 93/56; PULSE 76; TEMP 97.8; O2SAT 96
[2022-01-12] MEDS: Prenatal Vit/FA 1 EACH TABLET PO SCH (09:13)
[2022-01-12] MEDS: Simethicone 80 MG TAB.CHEW PO PRN (09:26)
== END 2022-01-12 10:45 | disposition home or self-care (01) | DRG 785 ==
LOC: 1NENULAB 11:51 → 1NENUOBS 20:02
PROVIDERS: ADMIT Student in an Organized Health Care Education/Training Program; ATTEND Student in an Organized Health Care Education/Training Program